=== PATIENT | male | born 1990 | race Caucasian/White ===

== ENCOUNTER → 2018-12-02 | Outpatient (CLI) | payer OTHER ==
--- NOTE | 2018-12-02 17:45 | REP ---
MRI RIGHT KNEE: TECHNIQUE: Axial proton density fat saturation, sagittal proton density T2 STIR, water excitation, coronal proton density, proton density fat saturation. There is a discoid lateral meniscus. There is no evidence of a meniscal tear. The cruciate and collateral ligaments are intact. The extensor mechanism is intact. No osteochondral defect is seen. There is no abnormal bone marrow signal. There is no bone marrow edema or occult fracture. No bone lesion is seen. There is a normal amount of joint fluid. No popliteal cyst is seen. IMPRESSION: Discoid lateral meniscus. No evidence of meniscal tear. Cruciate and collateral ligaments are intact. Electronically Signed by Param Dawn MD 12/03/2018 12:08 P
== END ==
LOC: M RAD 10:11
PROVIDERS: ATTEND Family Medicine
DX: M25.561 Pain in right knee (principal); Q68.6 Discoid meniscus